=== PATIENT | female | born 2000 | race African-American/Black ===

== ENCOUNTER 2022-06-27 12:57 | Emergency (ER) | payer OTHER ==
[~2022-06-27] VITALS: Ht 160 cm; Wt 72.6 kg
[2022-06-27] MEDS ORDERED: IV NORMAL SALINE 1000 ML BAG IV ONE (13:30)
[2022-06-27] MEDS ORDERED: ONDANSETRON 4 MG/2 ML VIAL IV ONE (13:30)
--- NOTE | 2022-06-27 13:30 | NUR ---
Pt seen by . Safety measures in place. Will continue to monitor.
[2022-06-27 13:36] LABS: *BILIRUBIN,URIN NEGATIVE (NEGATIVE); *BLOOD, URINE NEGATIVE (NEGATIVE); *CLARITY,URINE CLEAR (CLEAR); *COLOR,URINE YELLOW (YELLOW); *KETONES,URINE TRACE (NEGATIVE); LEUKOCYTE ESTERASE ,URINE NEGATIVE (NEGATIVE); NITRITE, URINE NEGATIVE (NEGATIVE); UGLUCOSE NEGATIVE (NEGATIVE)
[2022-06-27 13:40] LABS: *URINE HCG, QUAL NEG (NEGATIVE)
[2022-06-27] MEDS ORDERED: ONDANSETRON 4 MG/2 ML VIAL ONE (13:43)
[2022-06-27 13:58] LABS: HEMATOCRIT 38.6 % (31.2-41.9); MEAN CORPUSCULAR HEMOGLOBIN 28.3 uug (24.7-32.8); MEAN CORPUSCULAR VOLUME 87.4 fL (75.5-95.3); PLATELET COUNT (AUTO) 243 K/uL (179-408)
--- NOTE | 2022-06-27 14:06 | NUR ---
Pt asked to wait to do CT scan until mother comes here. Safety measures in place. Will continue to monitor.
[2022-06-27 14:07] LABS: CREATININE 0.7 mg/dL (0.6-1.3); POTASSIUM 3.6 mmol/L (3.5-5.1)
[2022-06-27 14:19] LABS: BILIRUBIN,DIRECT 0.2 mg/dL (0.0-0.2); BILIRUBIN,TOTAL 0.8 mg/dL (0.2-1.0); TOTAL PROTEIN, SERUM 8.4 g/dL (6.4-8.2)
[2022-06-27] MEDS ORDERED: KETOROLAC TROMETHAMINE 15 MG INJ IVP ONE (16:30)
[2022-06-27] MEDS ORDERED: KETOROLAC TROMETHAMINE 15 MG INJ ONE (16:37)
[2022-06-27] MEDS ORDERED: IV D5/ 0.9% NACL 1,000 ML IV ONE (16:45)
[2022-06-27] MEDS ORDERED: ONDA4TAB5 PO (16:47)
[2022-06-27 17:25] VITALS: BP 126/78
--- NOTE | 2022-06-27 17:25 | NUR ---
Patient discharged to home in stable condition. Written and verbal after care instructions given. Patient verbalizes understanding of instructions. Stressed follow up or return to ER for worsening s/s.
== END 2022-06-27 17:25 | disposition home or self-care (01) ==
LOC: ER 12:57
DX: R11.2 Nausea with vomiting, unspecified (principal); R10.10 Upper abdominal pain, unspecified; Z79.899 Other long term (current) drug therapy
CPT/HCPCS: 99285; 74176; 96374; 96361; 96375; 80076; 80048; 81003; 84703; 83690; 85025; 36415; J1885; J2405; J7040; A4663

== ENCOUNTER 2022-07-11 13:51 | Emergency (ER) | payer OTHER ==
[~2022-07-11 13:51] MED LIST: ONDA4TAB5 PO
== END 2022-07-11 14:36 | disposition left against medical advice (07) ==
LOC: ER 13:51
DX: Z53.21 Procedure and treatment not carried out due to patient leaving prior to being seen by health care provider (principal)